=== PATIENT | female | born 1965 | race Caucasian/White ===

== ENCOUNTER 2017-01-07 23:08 | Emergency (ER) | payer MEDICARE, OTHER ==
[2017-01-07 23:08] VITALS: BMI 25.4
[2017-01-07 23:15] VITALS: PULSE 100
[2017-01-07] MEDS ORDERED: Sodium Chloride 0.9% 1,000 ML IV ONE (23:39)
--- NOTE | 2017-01-08 00:31 | C.PDOC ---
History Of Present Illness 51 year old female with a Hx of diabetes who presents to the ER with a complaint of RUQ and epigastric pain for the past 2 days. Patient states she had diarrhea prior and since then has had constipation. Denies chest pain, SOB, or Hx of heart disease. Patient has not taken any medication for symptoms. Time Seen by Provider: 01/07/17 23:32 Chief Complaint (Nursing): Abdominal Pain History Per: Patient History/Exam Limitations: no limitations Onset/Duration Of Symptoms: Days, Waxing/Waning Location Of Pain/Discomfort: RUQ, Epigastric Radiation Of Pain To:: None Quality Of Discomfort: Unable To Describe Associated Symptoms: Constipation. denies: Fever, Chills, Other (chest pain, SOB) Exacerbating Factors: None Alleviating Factors: None Recent travel outside of the [place]: No Abnormal Vaginal Bleeding: No Past Medical History Reviewed: Historical Data, Nursing Documentation, Vital Signs Vital Signs: Last Vital Signs Temp 97.9 F 01/07/17 23:12 Pulse 100 H 01/07/17 23:12 Resp 18 01/07/17 23:12 BP 140/81 01/07/17 23:12 Pulse Ox 99 01/08/17 00:36 - Medical History PMH: HTN Surgical History: No Surg Hx Family History: States: Unknown Family Hx - Social History Hx Alcohol Use: No Hx Substance Use: No Review Of Systems Except As Marked, All Systems Reviewed And Found Negative. Constitutional: Negative for: Fever, Chills Gastrointestinal: Positive for: Abdominal Pain, Constipation Physical Exam - Physical Exam Appears: Non-toxic, No Acute Distress Skin: Normal Color, Warm, Dry Head: Atraumatic, Normacephalic Oral Mucosa: Moist Chest: Symmetrical Cardiovascular: Rhythm Regular Respiratory: Normal Breath Sounds, No Rales, No Rhonchi, No Wheezing Gastrointestinal/Abdominal: Soft, Tenderness (RUQ), No Guarding, No Rebound Neurological/Psych: Oriented x3, Normal Speech, Normal Cognition ED Course And Treatment - Laboratory Results Result Diagrams: 01/07/17 23:30 01/07/17 23:30 O2 Sat by Pulse Oximetry: 99 (room air) Pulse Ox Interpretation: Normal Medical Decision Making Medical Decision Making: CT abd/pel, blood work, CXR, urinalysis, EKG, pepcid, toradol, IV fluids Patient will be signed out pending CT, reevaluation, and disposition. Disposition - Disposition Disposition Time: 01:00 Condition: FAIR Forms: [facility] (Khmer) - Clinical Impression Clinical Impression: Abdominal pain, Constipation - Scribe Statement The provider has reviewed the documentation as recorded by the Scribe Blu Schaffer All medical record entries made by the Scribe were at my direction and personally dictated by me. I have reviewed the chart and agree that the record accurately reflects my personal performance of the history, physical exam, medical decision making, and the department course for this patient. I have also personally directed, reviewed, and agree with the discharge instructions and disposition. Physician Patient Turnover Patient Signed Over To: Octavio Mcgarry (pending CT, reevaluation, and disposition. )
[2017-01-08 00:38] LABS: BASO % 0.5 % (0.0-2.0); EOS # 0.1 K/uL (0.0-0.7); EOS % 1.1 % (0.0-4.0); HEMATOCRIT 36.1 % (34.0-47.0); LYMPH # 2.9 K/uL (1.0-4.3); LYMPH % 32.2 % (20.0-40.0); MEAN CELL VOLUME 74.6 fL (81.0-99.0); MEAN CORPUSCULAR HGB CONC 33.5 g/dL (33.0-37.0); MEAN PLATELET VOLUME 8.7 fL (7.2-11.7); MONO # 0.6 K/uL (0.0-0.8); MONO % 6.3 % (0.0-10.0); NRBC % 0.1 % (0.0-2.0); RED CELL DISTRIBUTION WIDTH 14.9 % (11.5-14.5); WHITE BLOOD COUNT 8.9 K/uL (4.8-10.8)
[2017-01-08 00:41] LABS: CHLORIDE 100 mmol/L (98-107); POTASSIUM 3.7 mmol/L (3.6-5.2); SODIUM 139 mmol/L (132-148)
[2017-01-08 00:43] LABS: ALB/GLOB RATIO 1.1 (1.0-2.1); ALKALINE PHOSPHATASE 68 U/L (38-126); AST/SGOT 55 U/L (14-36); BILIRUBIN,TOTAL 0.8 mg/dL (0.2-1.3); CARBON DIOXIDE 27 mmol/L (22-30); GFR AFRICAN-AMERICAN > 60; TOTAL PROTEIN 7.8 g/dL (6.3-8.3)
[2017-01-08 00:44] LABS: ALT/SGPT 90 U/L (9-52); BLOOD UREA NITROGEN 14 mg/dL (7-17); GLUCOSE,RANDOM 81 mg/dL (65-105)
[2017-01-08] MEDS ORDERED: Iohexol 350mg/ml 100 ML ONE (01:07)
[2017-01-08 01:08] LABS: RBC URINE < 1 /hpf (0-3); URINE BILIRUBIN NEGATIVE (NEGATIVE); URINE BLOOD NEGATIVE (NEGATIVE); URINE COLOR Yellow (YELLOW); URINE GLUCOSE (UA) NORMAL (Normal); URINE KETONE NEGATIVE (NEGATIVE); URINE LEUKOCYTE ESTERASE 1+ Leu/uL (Negative); URINE PROTEIN NEGATIVE (NEGATIVE); WBC URINE 10 /hpf (0-5)
--- NOTE | 2017-01-08 02:15 | CT ---
EXAM: CT Abdomen and Pelvis With Intravenous Contrast CLINICAL HISTORY: 51 years old, female; Pain; Abdominal pain; Additional info: Abd pain. Pt. Have a mental conditions TECHNIQUE: Axial computed tomography images of the abdomen and pelvis with intravenous contrast. All CT scans at this facility use one or more dose reduction techniques, viz.: automated exposure control; ma/kV adjustment per patient size (including targeted exams where dose is matched to indication; i.e. head); or iterative reconstruction technique. Coronal and sagittal reformatted images were created and reviewed. CONTRAST: 100 mL of [id number] administered intravenously. COMPARISON: No relevant prior studies available. FINDINGS: Limitations: Motion artifact - mild. Lower thorax: Minimal atelectasis/scarring. ABDOMEN: Liver: Probable mild fatty infiltration. Gallbladder and bile ducts: No calcified stones. No ductal dilation. Pancreas: No ductal dilation. No mass. Spleen: No splenomegaly. Adrenals: RIGHT adrenal calcification Kidneys and ureters: No mass. No hydronephrosis. Stomach and bowel: Apparent mild mural thickening of several loops of small bowel. No associated inflammatory stranding. No obstruction. Appendix: Normal caliber. No inflammation. PELVIS: Bladder: Unremarkable. Reproductive: Tiny calcification within uterus. ABDOMEN and PELVIS: Intraperitoneal space: No significant fluid collection. No free air. Haziness within central mesentery with several associated subcentimeter short axis lymph nodes. Bones/joints: Degenerative changes of spine. Hemangioma within spine. No acute fracture. Soft tissues: Minimal focal subdermal stranding anterior abdominal wall. Vasculature: Unremarkable. No aneurysm. Lymph nodes: See above. IMPRESSION: 1. Possible mild enteritis. Clinical correlation is needed. 2. Ilsa mesentery, nonspecific but may represent mesenteric panniculitis, age indeterminate. Clinical correlation is needed. 3. Incidental/non-acute findings are described above.
[2017-01-08 02:27] VITALS: BP 111/69; RESP 16; TEMP 97.3; O2SAT 97
--- NOTE | 2017-01-08 10:47 | RAD ---
PROCEDURE: CHEST RADIOGRAPH, 1 VIEW HISTORY: Abdominal pain COMPARISON: None available. FINDINGS: LUNGS: Mild venous congestion. PLEURA: No pneumothorax or pleural fluid seen. CARDIOVASCULAR: Normal. OSSEOUS STRUCTURES: No significant abnormalities. VISUALIZED UPPER ABDOMEN: Normal. OTHER FINDINGS: None. IMPRESSION: Mild venous congestion.
== END 2017-01-08 03:16 | disposition home or self-care (01) ==
LOC: C.ER 23:08
DX: K52.9 Noninfective gastroenteritis and colitis, unspecified (principal); K85.90 Acute pancreatitis without necrosis or infection, unspecified; I10 Essential (primary) hypertension; E11.9 Type 2 diabetes mellitus without complications
CPT/HCPCS: 71010; 74177; 80053; 81001; 83690; 84484; 84703; 85025; 96361; 96374; 96375; 99284; J1885; J7040; Q9967